=== PATIENT | female | born 1995 | race Caucasian/White ===

== ENCOUNTER 2017-07-06 21:30 | Emergency (ER) | payer SELFPAY ==
[~2017-07-06] VITALS: Ht 157.5 cm; Wt 39.3 kg
[2017-07-06 23:25] VITALS: BP 113/67
== END 2017-07-06 23:25 | disposition home or self-care (01) ==
LOC: EME 21:30
DX: F41.9 Anxiety disorder, unspecified (principal); F17.200 Nicotine dependence, unspecified, uncomplicated
CPT/HCPCS: 93005; 99281; 99285

== ENCOUNTER 2017-07-21 20:47 | Emergency (ER) | payer OTHER ==
[~2017-07-21] VITALS: Ht 157.5 cm; Wt 39.2 kg
[2017-07-21] MEDS ORDERED: LORTAB 5-325 M1 EACH PO (23:55)
[2017-07-22 00:44] VITALS: BP 112/73
== END 2017-07-22 00:44 | disposition home or self-care (01) ==
LOC: EME 20:47
PROC: 0PSPXZZ Reposition Right Metacarpal, External Approach (ICD-10-PCS; principal; 2017-07-21)
DX: S62.396A Other fracture of fifth metacarpal bone, right hand, initial encounter for closed fracture (principal); W22.09XA Striking against other stationary object, initial encounter; F17.200 Nicotine dependence, unspecified, uncomplicated
CPT/HCPCS: 73130; 99281; 99285; J3010